=== PATIENT | male | born 1945 | race Caucasian/White ===

== ENCOUNTER 2020-06-08 15:20 | Inpatient (IN) | payer MEDICARE, MEDICAID ==
[~2020-06-08] VITALS: Ht 170 cm; Wt 62.0 kg
[2020-06-08] MEDS ORDERED: ASPIRIN 81 MG CHEW (CHILDREN'S ASA) PO ONE (15:30)
[2020-06-08] MEDS ORDERED: ENOXAPARIN 80 MG/0.8 ML (LOVENOX) SYR SC ONE (15:30)
[2020-06-08] MEDS ORDERED: dilTIAZem DRIP PRE-MIX 125 ML IV SCH (15:30)
[2020-06-08] MEDS: NS IV 1000 ML 1,000 ML IV SCH ×3 (15:42→21:06)
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
[2020-06-08 15:49] LABS: ALBUMIN 4.1 GM/DL (3.2-4.5); CHLORIDE 107 MMOL/L (98-107); POTASSIUM 4.4 MMOL/L (3.6-5.0); SODIUM 142 MMOL/L (135-145)
[2020-06-08 15:50] LABS: CALCIUM 9.2 MG/DL (8.5-10.1)
[2020-06-08 15:52] LABS: GLUCOSE 111 MG/DL (70-105)
[2020-06-08 15:53] LABS: BILIRUBIN,TOTAL 1.6 MG/DL (0.1-1.0); CARBON DIOXIDE 19 MMOL/L (21-32)
[2020-06-08 15:54] LABS: FIBRIN DEGRADATION PRODUCTS 1.3 UG/ML (0.00-0.49)
[2020-06-08 15:55] LABS: ALKALINE PHOSPHATASE 122 U/L (40-136); CREATININE SERUM 1.44 MG/DL (0.60-1.30); GFR ESTIMATED 48
[2020-06-08 15:56] LABS: BUN/CREATININE RATIO 13
[2020-06-08 15:57] LABS: BASOPHILS % (AUTO) 0 % (0-10); EOSINOPHILS # (AUTO) 0.1 10^3/uL (0.0-0.3); EOSINOPHILS % (AUTO) 2 % (0-10); HEMATOCRIT 42 % (40-54); HEMOGLOBIN 13.3 g/dL (13.3-17.7); LYMPHOCYTES # (AUTO) 1.7 10^3/uL (1.0-4.0); LYMPHOCYTES % (AUTO) 25 % (12-44); MEAN CORPUSCULAR HEMOGLOBIN 29 pg (25-34); MEAN CORPUSCULAR HGB CONC 32 g/dL (32-36); MEAN CORPUSCULAR VOLUME 93 fL (80-99); MEAN PLATELET VOLUME 9.9 fL (9.0-12.2); MONOCYTES # (AUTO) 0.5 10^3/uL (0.0-1.0); MONOCYTES % (AUTO) 7 % (0-12); NEUTROPHILS # (AUTO) 4.5 10^3/uL (1.8-7.8); NEUTROPHILS % (AUTO) 66 % (42-75); PLATELET COUNT 310 10^3/uL (130-400); WHITE BLOOD COUNT 6.8 10^3/uL (4.3-11.0)
[2020-06-08 15:58] LABS: ALANINE AMINOTRANSFERASE 33 U/L (0-55); MAGNESIUM 2.6 MG/DL (1.6-2.4)
[2020-06-08 15:59] LABS: CREATINE KINASE 136 U/L (30-200)
[2020-06-08 16:06] LABS: CREATINE KINASE MB 3.1 NG/ML (<6.6)
--- NOTE | 2020-06-08 16:18 | NUR ---
RADIOLOGY AT BEDSIDE
[2020-06-08 16:19] LABS: TSH (THYROID ANALYZER) 3.78 UIU/ML (0.35-4.94)
[2020-06-08] MEDS ORDERED: IOHEXOL 350 MG/ML 100 ML (OMNIPAQUE 350) VIAL IV ONE (16:30)
[2020-06-08] MEDS ORDERED: HOLD METFORMIN - RECEIVED CONTRAST 20 ML VIAL IV SCH (16:30)
[2020-06-08] MEDS ORDERED: NS 100 ML (IVPB) BAG IV ONE (16:30)
--- NOTE | 2020-06-08 16:32 | NUR ---
PT TO CT PER CART. NO C/O VOICED, B/P 110/67, HR 128BPM
--- NOTE | 2020-06-08 16:37 | Diagnostic Imaging Report ---
INDICATION: Shortness of breath. EXAMINATION: Single view of the chest was obtained. FINDINGS: There is air trapping. There is prominence of the perihilar lung markings which may be scarring and no definite acute pneumonia or lobar consolidation. No failure pattern, effusion or pneumothorax. IMPRESSION: Likely chronic interstitial prominence with symmetrical air trapping. Dictated by: Dictated on workstation # [id number]
--- NOTE | 2020-06-08 16:53 | NUR ---
PT BACK FROM RADIOLOGY
--- NOTE | 2020-06-08 17:10 | Diagnostic Imaging Report ---
PROCEDURE: CT angiography of the chest with contrast. TECHNIQUE: Multiple contiguous axial images were obtained through the chest after uneventful bolus administration of intravenous contrast. 3D reconstructed CTA MIP acquisitions were also performed. Auto Exposure Controls were utilized during the CT exam to meet ALARA standards for radiation dose reduction. INDICATION: Shortness of breath and dizziness. FINDINGS: There is some interstitial scarring in the lung bases. There is no pleural or pericardial fluid. There is no pneumothorax. The heart size is normal. There is no pathologically enlarged adenopathy in the chest. Thoracic aorta is normal in caliber. There is suboptimal opacification of the aorta making exclusion of dissection difficult. There are no filling defects seen within the pulmonary arteries to suggest pulmonary embolism. There is some pneumobilia suggesting previous sphincterotomy. Remainder of the intra-abdominal structures are unremarkable. There are degenerative changes in the spine. IMPRESSION: Chronic appearing interstitial scarring in the lung bases. No evidence of pulmonary embolism. No evidence of aortic aneurysm although it is difficult to exclude dissection due to suboptimal opacification of the aorta. No other acute abnormality in the chest Dictated by: Dictated on workstation # [id number]
[2020-06-08] MEDS ORDERED: APIXABAN 5 MG (ELIQUIS) TABLET PO ONE (17:30)
[2020-06-08] MEDS ORDERED: DIGOXIN 0.25 MG/ML (LANOXIN) 2 ML AMP IV ONE (17:30)
[2020-06-08] MEDS ORDERED: NS IV 1000 ML 1,000 ML ONE (20:16)
[2020-06-08] MEDS ORDERED: CATHETER FLUSH 10 ML SYR IV PRN (20:30)
[2020-06-08] MEDS ORDERED: dilTIAZem DRIP 125 MG/125 ML DRIP IV SCH (20:30)
[2020-06-08 21:53] VITALS: BP 128/100
[2020-06-08] MEDS ORDERED: RT-ALBUTEROL/IPRATROPIUM 3 ML (DUONEB) VIAL INH PRN (22:15)
[2020-06-09 03:26] LABS: BASOPHILS % (AUTO) 1 % (0-10); EOSINOPHILS % (AUTO) 1 % (0-10); HEMATOCRIT 36 % (40-54); HEMOGLOBIN 11.6 g/dL (13.3-17.7); LYMPHOCYTES # (AUTO) 1.1 10^3/uL (1.0-4.0); LYMPHOCYTES % (AUTO) 16 % (12-44); MEAN CORPUSCULAR HEMOGLOBIN 30 pg (25-34); MEAN CORPUSCULAR HGB CONC 32 g/dL (32-36); MEAN CORPUSCULAR VOLUME 93 fL (80-99); MEAN PLATELET VOLUME 10.9 fL (9.0-12.2); MONOCYTES # (AUTO) 0.6 10^3/uL (0.0-1.0); MONOCYTES % (AUTO) 9 % (0-12); NEUTROPHILS # (AUTO) 4.9 10^3/uL (1.8-7.8); NEUTROPHILS % (AUTO) 73 % (42-75); PLATELET COUNT 193 10^3/uL (130-400); WHITE BLOOD COUNT 6.7 10^3/uL (4.3-11.0)
[2020-06-09 03:35] LABS: ALBUMIN 3.5 GM/DL (3.2-4.5)
[2020-06-09 03:36] LABS: CHLORIDE 111 MMOL/L (98-107); POTASSIUM 4.1 MMOL/L (3.6-5.0); SODIUM 141 MMOL/L (135-145)
[2020-06-09 03:38] LABS: GLUCOSE 77 MG/DL (70-105); TOTAL PROTEIN 5.8 GM/DL (6.4-8.2)
[2020-06-09 03:39] LABS: CARBON DIOXIDE 19 MMOL/L (21-32)
[2020-06-09 03:40] LABS: BILIRUBIN,TOTAL 1.4 MG/DL (0.1-1.0)
[2020-06-09 03:41] LABS: ALKALINE PHOSPHATASE 95 U/L (40-136); CREATININE SERUM 1.15 MG/DL (0.60-1.30); GFR ESTIMATED > 60
[2020-06-09 03:43] LABS: BUN/CREATININE RATIO 15
[2020-06-09 03:44] LABS: ALANINE AMINOTRANSFERASE 22 U/L (0-55)
[2020-06-09] MEDS: NS IV 1000 ML 1,000 ML IV SCH ×2 (05:07→13:39)
--- NOTE | 2020-06-09 07:49 | Diagnostic Imaging Report ---
INDICATION: Valvular artery disease Portable chest 1:27 AM There are emphysematous changes in the lungs. There is interstitial fibrosis in the perihilar and basilar regions of both lungs. There are no consolidating alveolar infiltrates. There are no effusions or pneumothoraces. IMPRESSION: COPD with pulmonary fibrosis. No change compared to the previous day. Dictated by: Dictated on workstation # [id number]
[2020-06-09] MEDS ORDERED: ASPIRIN E.C. 325 MG (ECOTRIN) TABLET PO SCH (09:00)
[2020-06-09] MEDS: APIXABAN 5 MG (ELIQUIS) TABLET PO SCH ×2 (09:18→19:27)
[2020-06-09] MEDS: RT-ALBUTEROL/IPRATROPIUM 3 ML (DUONEB) VIAL INH SCH ×3 (09:49→19:44)
[2020-06-09] MEDS ORDERED: predniSONE 20 MG TAB PO NR (10:00)
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
[2020-06-09] MEDS ORDERED: LISI10TA2 PO (13:36)
[2020-06-09] MEDS ORDERED: IBUP-2473 PO (13:36)
[2020-06-09] MEDS ORDERED: ALBU18HF2 INH (13:36)
[2020-06-09] MEDS ORDERED: MAGN400T39 PO (13:36)
--- NOTE | 2020-06-09 13:36 | NUR ---
SPOKE WITH THE PT AND WENT THRU THE EXT MED HISTORY TO COMPLETE THE MED REC PT SAYS HE ONLY TAKES LISINOPRIL AND ALBUTEROL HFA. BREO 100/25 AND SYMBICORT 80/4.5 ARE LISTED ON THE EXT MED HISTORY- HOWEVER PT SAYS HE DOES NOT USE EITHER OF THEM OTC MEDS: IBUPROFEN MAGNESIUM
--- NOTE | 2020-06-09 13:44 | NUR ---
CM/SS: Updated patient's Emergency Contact information: Friend and DPOA Binta Deleon cell number [phone]. Password was also made to be "[id number]". I gave the password information to the primary care nurse Kapil so he could update the patient's chart. Contacted Dr. Lew's office to see who the patient's primary care provider is. The office reported that he see's Dr. Lew's nurse practitioner, Yin DRISCOLL. Binta will bring copies of the [facility] paper work, his insurance cards [facility] [id number]; [facility] [id number]. Patient will need to have the free Eliquis given to him at discharge so that he can pick that medication up at his choice pharmacy. This information was given to Binta and explained to his primary care nurse and placed in his discharge information packet.
--- NOTE | 2020-06-09 13:53 | Consultation-Cardiology ---
HPI-Cardiology Cardiology Consultation: Date of Consultation 06/09/20 Time Seen by a Provider: 13:30 Date of Admission Attending Physician Elissa Qiu MD Admitting Physician No,Local Physician Consulting Physician ALCON BERGERON MD, MA, FACP, FACC, FSCAI, CCDS HPI: Chief Complaint: CC: Shortness of breath HPI 75 yo man with chronic shortness of breath, much worse since yesterday. Was quite short of breath at the time of a [place] visit and was brought to ER by ambulance. Denies cp or palp or syncope or leg swelling Review of Systems-Cardiology Review of Systems Constitutional: malaise, tiredness; No weight loss, No weight gain Eyes: No vision change Ears/Nose/Throat: ear discharge, nasal drainage; No recent hearing loss Respiratory: As described under HPI Cardiovascular: As described under HPI; No lightheadedness Gastrointestinal: No nausea, No vomiting Genitourinary: No dysuria, No hematuria, No urine frequency changes Skin: No rash, No ulcerations Psychiatric/Neurological: No seizure, No focal weakness, No syncope Hematologic: No bleeding abnormalities [id number] Hx Patient Social History Alcohol Use: Past History Recreational Drug Use: No Smoking Status: Former Smoker Type Used: Cigarettes Recent Foreign Travel: No Recent Infectious Disease Expo: No Hospitalization with Isolation: Denies Immunizations Up To Date Date of Influenza Vaccine: Apr 08, 2020 Past Medical History PMH As described under Assessment. Family Medical History Family Medical History: Reports a h/o CAD in father but does not know details or what age it began at Allergies and Home Medications Allergies Coded Allergies: No Known Drug Allergies (Unverified , 06/08/20) Home Medications Albuterol Sulfate 18 Gm Hfa.aer.ad, 2 PUFF INH Q6H PRN for SHORTNESS OF BREATH, (Reported) Ibuprofen 200 Mg Tablet, 400 MG PO Q8H PRN for PAIN-MILD (1-4), (Reported) Lisinopril 10 Mg Tablet, 10 MG PO DAILY, (Reported) Magnesium Oxide 400 Mg Tablet, 400 MG PO DAILY PRN for MUSCLE CRAMPS, (Reported) Patient Home Medication List Home Medication List Reviewed: Yes Physical Exam-Cardiology Physical Exam Vital Signs/I&O 06/09/20 06/09/20 06/09/20 06/09/20 02:00 03:00 04:00 05:00 Pulse 128 126 126 126 Resp 20 119 17 19 B/P (MAP) 111/72 (85) 128/70 (89) 105/42 (63) 117/96 (103) Pulse Ox 99 97 99 100 O2 Delivery Nasal Cannula Nasal Cannula Nasal Cannula Nasal Cannula O2 Flow Rate 2.00 2.00 2.00 2.00 06/09/20 06/09/20 06/09/20 06/09/20 05:38 06:00 06:00 06:40 Temp 36.7 Pulse 126 125 Resp 20 B/P (MAP) 99/54 (69) Pulse Ox 98 O2 Delivery Nasal Cannula Nasal Cannula O2 Flow Rate 2.00 2.00 06/09/20 06/09/20 06/09/20 06/09/20 07:20 09:50 10:56 11:25 Temp 36.1 36.0 Pulse 125 128 126 Resp 20 24 B/P (MAP) 119/76 (90) 131/75 127/78 (94) Pulse Ox 98 95 96 O2 Delivery Nasal Cannula Nasal Cannula Room Air O2 Flow Rate 2.00 2.00 06/09/20 13:09 Pulse 127 06/09/20 00:00 Intake Total 1000 ml Balance 1000 ml Capillary Refill : Less Than 3 Seconds Constitutional: AAO x 3, well-developed, well-nourished HEENT: EOMI, hearing is well preserved; No xanthelasmas are seen Neck: carotid pulses are 2 + bilaterally, with good upstrokes Respiratory: other (Scattered wheezes, prolonged exp phase) Cardiovascular: regular rate-rhythm, S1 and S2, systolic murmur (soft JACQUELINE at card base) Gastrointestinal: No tender; soft; No guarding, No rebound; audible bowel sounds Extremities: No clubbing, No cyanosis, No significant edema Neurologic/Psychiatric: oriented x 3, other (moves all limbs equally) Skin: No rash on exposed areas, No ulcerations on exposed areas Data Review Labs Laboratory Tests 06/08/20 15:30: White Blood Count 6.8, Red Blood Count 4.55, Hemoglobin 13.3, Hematocrit 42, Mean Corpuscular Volume 93, Mean Corpuscular Hemoglobin 29, Mean Corpuscular Hemoglobin Concent 32, Red Cell Distribution Width 14.2, Platelet Count 310, Mean Platelet Volume 9.9, Immature Granulocyte % (Auto) 0, Neutrophils (%) (Auto) 66, Lymphocytes (%) (Auto) 25, Monocytes (%) (Auto) 7, Eosinophils (%) (Auto) 2, Basophils (%) (Auto) 0, Neutrophils # (Auto) 4.5, Lymphocytes # (Auto) 1.7, Monocytes # (Auto) 0.5, Eosinophils # (Auto) 0.1, Basophils # (Auto) 0.0, Immature Granulocyte # (Auto) 0.0, Prothrombin Time 14.0, INR Comment 1.0, Activated Partial Thromboplast Time 25, D-Dimer 1.30H, Sodium Level 142, Potassium Level 4.4, Chloride Level 107, Carbon Dioxide Level 19L, Anion Gap 16H , Blood Urea Nitrogen 19H, Creatinine 1.44H, Estimat Glomerular Filtration Rate 48, BUN/Creatinine Ratio 13, Glucose Level 111H, Calcium Level 9.2, Corrected Ca lcium 9.1, Magnesium Level 2.6H, Total Bilirubin 1.6H, Aspartate Amino Transf (AST/SGOT) 61H, Alanine Aminotransferase (ALT/SGPT) 33, Alkaline Phosphatase 122, Total Creatine Kinase 136, Creatine Kinase MB 3.1, Myoglobin 172.0H, Troponin I 0.036H, B-Type Natriuretic Peptide 1083.1H, Total Protein 7.0, Albumin 4.1, TSH Cottle Testing 3.78, Serum Alcohol < 10 06/08/20 21:48: Troponin I 0.036H 06/09/20 02:45: White Blood Count 6.7, Red Blood Count 3.93L, Hemoglobin 11.6L, Hematocrit 36L, Mean Corpuscular Volume 93, Mean Corpuscular Hemoglobin 30, Mean Corpuscular Hemoglobin Concent 32, Red Cell Distribution Width 14.2, Platelet Count 193, Mean Platelet Volume 10.9, Immature Granulocyte % (Auto) 1, Neutrophils (%) (Auto) 73, Lymphocytes (%) (Auto) 16, Monocytes (%) (Auto) 9, Eosinophils (%) (Auto) 1, Basophils (%) (Auto) 1, Neutrophils # (Auto) 4.9, Lymphocytes # (Auto) 1.1, Monocytes # (Auto) 0.6, Eosinophils # (Auto) 0.0, Basophils # (Auto) 0.0, Immature Granulocyte # (Auto) 0.0, Sodium Level 141, Potassium Level 4.1, Chloride Level 111H, Carbon Dioxide Level 19L, Anion Gap 11, Blood Urea Nitrogen 17, Creatinine 1.15, Estimat Glomerular Filtration Rate > 60, BUN/Creatinine Ratio 15, Glucose Level 77, Calcium Level 8.0L, Corrected Calcium 8.4L, Total Bilirubin 1.4H, Aspartate Amino Transf (AST/SGOT) 25, Alanine Aminotransferase (ALT/SGPT) 22, Alkaline Phosphatase 95, B-Type Natriuretic Peptide 1274.9H, Total Protein 5.8L, Albumin 3.5 Laboratory Tests 06/08/20 15:30 06/09/20 02:45 A/P-Cardiology Assessment/Admission Diagnosis Shortness of breath, multifactorial (see below) Ac exacerbation of COPD Atrial flutter with 2:1 AV conduction Ac CHF, EF undetermined. Acute component likely diastolic due to rapid heart rate Hypertension, by history Quit smoking in early , he says Discussion and Recomendations * iv dilt * Add iv dig * iv diuretics * Echo * Management of ac exac of COPD is with the Hospitalist service * Monitor labs Clinical Quality Measures DVT/VTE Risk/Contraindication: Risk Factor Score Per Nursin RFS Level Per Nursing on Admit: 2=Moderate ALCON BERGERON MD FACP [facility] CCDS Jun 09, 2020 13:53
[2020-06-09] MEDS ORDERED: FUROSEMIDE 40 MG/4 ML INJ (LASIX) IVP NR (14:00)
[2020-06-09] MEDS ORDERED: KCL 20 MEQ TAB (K-DUR) PO NR (14:00)
[2020-06-09] MEDS ORDERED: DIGOXIN 0.25 MG/ML (LANOXIN) 2 ML AMP IV NR (14:00)
[2020-06-09 14:39] LABS: AMPHETAMINE SCREEN, URINE NEGATIVE (NEGATIVE); BARBITURATE SCREEN URINE NEGATIVE (NEGATIVE); BENZODIAZEPINES SCREEN URINE NEGATIVE (NEGATIVE); CANNABINOID SCREEN, URINE NEGATIVE (NEGATIVE); COCAINE SCREEN URINE NEGATIVE (NEGATIVE); METHADONE STAT NEGATIVE (NEGATIVE); METHAMPHETAMINE SCREEN URINE S NEGATIVE (NEGATIVE); OPIATE SCREEN URINE NEGATIVE (NEGATIVE); OXYCODONE STAT NEGATIVE (NEGATIVE); PROPOXYPHENE STAT NEGATIVE (NEGATIVE); TRICYCLIC ANTIDEPRESSANTS SCRE NEGATIVE (NEGATIVE)
[2020-06-09] MEDS: ADVAIR HFA 115/21 MCG INHALER 8 GM IH SCH (20:06)
--- NOTE | 2020-06-09 21:00 | NUR ---
2053- PAGED DR. BERGERON. 2054- DR. BERGERON RETURNED PAGE. REPORTED TURNED OFF CARDIZEM DRIP DUE TO HEART RATE 70'S TO 90'S AFLUTTER. SBP 70'S AND 80'S. ORDERED TO KEEP THE DRIP OFF. TO GIVE A ONE TIME DOSE OF CARDIZEM CD 120MG IS HEART RATE SUSTAINS OVER 130 BPM.
[2020-06-10 03:54] LABS: POTASSIUM 4.7 MMOL/L (3.6-5.0)
[2020-06-10 03:55] LABS: CALCIUM 8.5 MG/DL (8.5-10.1)
[2020-06-10 03:59] LABS: CREATININE SERUM 1.18 MG/DL (0.60-1.30)
[2020-06-10 04:01] LABS: MAGNESIUM 2.1 MG/DL (1.6-2.4)
[2020-06-10] MEDS: predniSONE 20 MG TAB PO SCH (06:13)
[2020-06-10] MEDS: RT-ALBUTEROL/IPRATROPIUM 3 ML (DUONEB) VIAL INH SCH ×3 (06:59→21:52)
[2020-06-10] MEDS: ADVAIR HFA 115/21 MCG INHALER 8 GM IH SCH ×2 (06:59→21:52)
[2020-06-10] MEDS: UMECLIDINIUM BROMIDE (INCRUSE ELLIPTA) 7'S IH SCH (07:00)
--- NOTE | 2020-06-10 08:01 | Progress Note - Hospitalist ---
Subjective HPI/CC On Admission Date Seen by Provider: Jun 10, 2020 Time Seen by Provider: 07:50 Sheron Grayson is a 75-year-old male with past medical history of COPD, former smoker, who presented with shortness of breath. He was at the [facility] yesterday and became very short of breath. He denies chest pain. He denies palpitations. He did have nausea and vomiting. He also reports diaphoresis. He denies any fevers. He denies any cough. He denies any diarrhea. He denies any abdominal pain. He reports occasional acid reflux. He quit smoking about 20 years ago. He uses an albuterol inhaler whenever he gets short of breath. He follows with doctor in [place]. Subjective/Events-last exam he is feeling better today. He denies any chest pain or palpitations. He is not having any shortness of breath. He denies any fevers. Objective Exam Vital Signs Vital Signs Date Time Temp Pulse Resp B/P (MAP) Pulse Ox O2 Delivery O2 Flow Rate FiO2 06/10/20 07:02 95 Room Air 06/10/20 07:01 06/10/20 07:00 125 06/10/20 06:00 15 114/53 (73) 06/10/20 00:15 36.2 Capillary Refill : Less Than 3 Seconds General Appearance: No Apparent Distress, Chronically ill Neck: Normal Inspection, Supple Respiratory: No Respiratory Distress, Wheezing Cardiovascular: Irregularly Irregular, Tachycardia Gastrointestinal: Normal Bowel Sounds, Non Tender, Soft Extremity: Normal Inspection, Non Tender, No Pedal Edema Neurologic/Psychiatric: Alert, Oriented x3, No Motor/Sensory Deficits, Normal Mood/Affect Skin: Normal Color, Warm/Dry Results/Procedures Lab Laboratory Tests 06/10/20 03:05 Patient resulted labs reviewed. Imaging: Reviewed Imaging Report Assessment/Plan Assessment and Plan Assess & Plan/Chief Complaint Atrial fibrillation with rapid ventricular response Transitioned to oral Cardizem Continue Eliquis Cardiology consulted, appreciate assistance COPD with acute exacerbation Continue prednisone and inhalers MAT protocol HTN Continue Lisinopril DVT Prophylaxis: already receiving therapeutic anticoagulation Diagnosis/Problems Diagnosis/Problems (1) Atrial fibrillation with RVR Status: Acute (2) COPD (chronic obstructive pulmonary disease) Status: Acute (3) HTN (hypertension) Status: Chronic Qualifiers: Hypertension type: essential hypertension Qualified Codes: I10 - Essential (primary) hypertension Clinical Quality Measures DVT/VTE Risk/Contraindication: Risk Factor Score Per Nursin RFS Level Per Nursing on Admit: 2=Moderate SONIA STAFFORD MD Jun 10, 2020 08:01
[2020-06-10] MEDS: APIXABAN 5 MG (ELIQUIS) TABLET PO SCH ×2 (08:24→21:56)
[2020-06-10] MEDS ORDERED: lisINopril 10 MG (PRINIVIL) TABLET PO SCH (09:00)
[2020-06-10] MEDS ORDERED: lisINopril 40 MG (PRINIVIL) TABLET PO SCH (09:00)
--- NOTE | 2020-06-10 15:55 | Progress Note - Cardiology ---
Cardiology SOAP Progress Note Subjective: He says his shortness of breath has improved but not resolved No cp or palp or syncope No n/v/d Objective: I&O/Vital Signs 06/10/20 06/10/20 06/10/20 06/10/20 04:00 05:00 06:00 07:00 Pulse 124 123 118 125 Resp 18 18 15 B/P (MAP) 121/65 (83) 101/50 (67) 114/53 (73) Pulse Ox 100 100 100 O2 Delivery Nasal Cannula Nasal Cannula Nasal Cannula O2 Flow Rate 2.00 2.00 2.00 06/10/20 06/10/20 06/10/20 06/10/20 07:01 07:01 07:02 07:59 Temp 37.2 Pulse 126 Resp 26 B/P (MAP) 116/79 (91) Pulse Ox 95 95 95 96 O2 Delivery Room Air Room Air Room Air Nasal Cannula O2 Flow Rate 2.00 06/10/20 06/10/20 06/10/20 09:00 14:41 15:45 Temp 36.8 Pulse 126 Resp 13 B/P (MAP) 134/75 (94) Pulse Ox 96 97 95 O2 Delivery Room Air Room Air Nasal Cannula O2 Flow Rate 2.00 2.00 06/10/20 00:00 Intake Total 500 ml Output Total 500 ml Balance 0 ml Constitutional: AAO x 3, well-developed, well-nourished Respiratory: other (Scattered wheezes, prolonged exp phase) Cardiovascular: regular rate-rhythm, S1 and S2, systolic murmur (soft JACQUELINE at card base) Gastrointestional: No tender; soft; No guarding, No rebound; audible bowel s ounds Extremities: No clubbing, No cyanosis, No significant edema Neurologic/Psychiatric: oriented x 3, other (moves all limbs equally) Skin: No rash on exposed areas, No ulcerations on exposed areas Results/Procedures: Labs Laboratory Tests 06/10/20 03:05: Sodium Level 139, Potassium Level 4.7, Chloride Level 108H, Carbon Dioxide Level 16L, Anion Gap 15H, Blood Urea Nitrogen 17, Creatinine 1.18, Estimat Glomerular Filtration Rate 60, BUN/Creatinine Ratio 14, Glucose Level 90, Calcium Level 8.5, Magnesium Level 2.1 A/P: Assessment: Shortness of breath, multifactorial (see below) Ac systolic and diastolic CHF. Echo of 06/10/20: LVEF 35-40%, mild to mod MR, mild left atrial enlargement, PASP 35-40 mmHg Cardiomyopathy (see above) probably tachycardia-related Ac exacerbation of COPD Atrial flutter with 2:1 AV conduction Hypertension, by history Quit smoking in early , he says Plan: * Dig for vent rate control * BB and VANESSA-inhib to treat dilated cardiomyopathy. Adjust as tolerated by bp * Diuretics (furosemide and spironolactone) to treat decompensated CHF * Apixaban for stroke prophylaxis * Monitor labs ALCON BERGERON MD FACP FAC CCDS Jun 10, 2020 15:55
[2020-06-10] MEDS ORDERED: FUROSEMIDE 40 MG (LASIX) TAB PO ONE (16:00)
[2020-06-10] MEDS ORDERED: SPIRONOLACTONE 25 MG (ALDACTONE) TAB PO ONE (16:00)
[2020-06-10] MEDS ORDERED: DIGOXIN 0.125 MG (LANOXIN) TAB PO ONE (16:00)
[2020-06-10] MEDS ORDERED: DIGOXIN 0.125 MG (LANOXIN) TAB ONE (16:20)
[2020-06-10] MEDS ORDERED: FUROSEMIDE 40 MG (LASIX) TAB ONE (16:20)
[2020-06-10] MEDS: CARVEDILOL 3.125 MG (COREG) TABLET PO SCH (16:25)
[2020-06-10 21:56] VITALS: BP 116/73
[2020-06-10] MEDS: ENALAPRIL 2.5 MG (VASOTEC) TAB PO SCH (21:56)
--- NOTE | 2020-06-11 05:14 | Progress Note - Hospitalist ---
Subjective HPI/CC On Admission Date Seen by Provider: Jun 11, 2020 Time Seen by Provider: 05:00 Sheron Grayson is a 75-year-old male with past medical history of COPD, former smoker, who presented with shortness of breath. He was at the [facility] yesterday and became very short of breath. He denies chest pain. He denies palpitations. He did have nausea and vomiting. He also reports diaphoresis. He denies any fevers. He denies any cough. He denies any diarrhea. He denies any abdominal pain. He reports occasional acid reflux. He quit smoking about 20 years ago. He uses an albuterol inhaler whenever he gets short of breath. He follows with doctor in [place]. Subjective/Events-last exam He is feeling better today. He is not having any trouble breathing. He denies any chest pain. He has been eating and drinking. He has no complaints or concerns. Objective Exam Vital Signs Vital Signs Date Time Temp Pulse Resp B/P (MAP) Pulse Ox O2 Delivery O2 Flow Rate FiO2 06/11/20 21:13 93 Room Air 06/11/20 20:38 35.5 90 16 105/65 (78) 06/10/20 21:56 21 06/10/20 19:38 2.00 Capillary Refill : Less Than 3 SecondsLess Than 3 Seconds General Appearance: No Apparent Distress, Chronically ill Respiratory: Lungs Clear, Normal Breath Sounds, No Respiratory Distress Cardiovascular: Irregularly Irregular, Tachycardia Gastrointestinal: Normal Bowel Sounds, Non Tender, Soft Extremity: Normal Inspection, Non Tender, No Pedal Edema Neurologic/Psychiatric: Alert, Oriented x3, No Motor/Sensory Deficits, Normal Mood/Affect Skin: Normal Color, Warm/Dry Results/Procedures Lab Laboratory Tests 06/11/20 04:21 Patient resulted labs reviewed. Imaging: Reviewed Imaging Report Assessment/Plan Assessment and Plan Assess & Plan/Chief Complaint Atrial fibrillation with rapid ventricular response Heart failure with reduced ejection fraction Continue Digoxin Starting oral Cardizem Increasing Coreg Cardizem stopped Continue Eliquis Cardiology consulted, appreciate assistance Echo revealed EF 35-40% Continue Enalapril COPD with acute exacerbation Continue prednisone and inhalers MAT protocol HTN Continue Lisinopril DVT Prophylaxis: already receiving therapeutic anticoagulation Diagnosis/Problems Diagnosis/Problems (1) Atrial fibrillation with RVR Status: Acute (2) COPD (chronic obstructive pulmonary disease) Status: Acute (3) HTN (hypertension) Status: Chronic Qualifiers: Hypertension type: essential hypertension Qualified Codes: I10 - Essential (primary) hypertension (4) HFrEF (heart failure with reduced ejection fraction) Status: Acute Clinical Quality Measures DVT/VTE Risk/Contraindication: Risk Factor Score Per Nursin RFS Level Per Nursing on Admit: 2=Moderate SONIA STAFFORD MD Jun 11, 2020 05:14
[2020-06-11 05:26] LABS: BASOPHILS % (AUTO) 0 % (0-10); EOSINOPHILS % (AUTO) 0 % (0-10); HEMATOCRIT 41 % (40-54); HEMOGLOBIN 13.4 g/dL (13.3-17.7); LYMPHOCYTES # (AUTO) 1.1 10^3/uL (1.0-4.0); LYMPHOCYTES % (AUTO) 11 % (12-44); MEAN CORPUSCULAR HEMOGLOBIN 29 pg (25-34); MEAN CORPUSCULAR HGB CONC 33 g/dL (32-36); MEAN CORPUSCULAR VOLUME 89 fL (80-99); MONOCYTES # (AUTO) 0.7 10^3/uL (0.0-1.0); MONOCYTES % (AUTO) 7 % (0-12); NEUTROPHILS # (AUTO) 8.1 10^3/uL (1.8-7.8); NEUTROPHILS % (AUTO) 82 % (42-75); PLATELET COUNT 309 10^3/uL (130-400); WHITE BLOOD COUNT 9.9 10^3/uL (4.3-11.0)
[2020-06-11 05:43] LABS: POTASSIUM 3.8 MMOL/L (3.6-5.0)
[2020-06-11 05:49] LABS: CREATININE SERUM 1.17 MG/DL (0.60-1.30)
[2020-06-11] MEDS: predniSONE 20 MG TAB PO SCH (06:24)
[2020-06-11] MEDS: RT-ALBUTEROL/IPRATROPIUM 3 ML (DUONEB) VIAL INH SCH ×2 (07:54→21:12)
[2020-06-11] MEDS: ADVAIR HFA 115/21 MCG INHALER 8 GM IH SCH ×2 (07:54→21:12)
[2020-06-11] MEDS: UMECLIDINIUM BROMIDE (INCRUSE ELLIPTA) 7'S IH SCH (07:55)
[2020-06-11] MEDS: CARVEDILOL 3.125 MG (COREG) TABLET PO SCH ×2 (08:02→17:45)
[2020-06-11] MEDS: ENALAPRIL 2.5 MG (VASOTEC) TAB PO SCH ×2 (08:02→20:39)
[2020-06-11] MEDS: SPIRONOLACTONE 25 MG (ALDACTONE) TAB PO SCH (08:02)
[2020-06-11] MEDS: DIGOXIN 0.125 MG (LANOXIN) TAB PO SCH (08:02)
[2020-06-11] MEDS: FUROSEMIDE 40 MG (LASIX) TAB PO SCH (08:02)
[2020-06-11] MEDS: APIXABAN 5 MG (ELIQUIS) TABLET PO SCH ×2 (08:02→20:39)
--- NOTE | 2020-06-11 12:56 | Progress Note - Cardiology ---
Cardiology SOAP Progress Note Subjective: Shortness of breath, but breathing has not returned to baseline No cp or palp or syncope Gen malaise present No n/v/d Objective: I&O/Vital Signs 06/11/20 06/11/20 06/11/20 06/11/20 01:00 04:00 07:00 07:11 Temp 36.4 36.1 Pulse 118 112 130 114 Resp 12 24 B/P (MAP) 109/64 (79) 124/75 (91) Pulse Ox 94 95 O2 Delivery Room Air Room Air 06/11/20 06/11/20 06/11/20 07:55 08:09 11:06 Temp 35.9 Pulse 133 Resp 28 B/P (MAP) 132/78 (96) Pulse Ox 93 95 98 O2 Delivery Room Air Room Air Room Air 06/11/20 00:00 Intake Total 1575 ml Output Total 700 ml Balance 875 ml Constitutional: AAO x 3, well-developed, well-nourished Respiratory: other (Scattered wheezes, prolonged exp phase) Cardiovascular: regular rate-rhythm, S1 and S2, systolic murmur (soft JACQUELINE at card base) Gastrointestional: No tender; soft; No guarding, No rebound; audible bowel sounds Extremities: No clubbing, No cyanosis, No significant edema Neurologic/Psychiatric: oriented x 3, other (moves all limbs equally) Skin: No rash on exposed areas, No ulcerations on exposed areas Results/Procedures: Labs Laboratory Tests 06/11/20 04:21: White Blood Count 9.9, Red Blood Count 4.64, Hemoglobin 13.4, Hematocrit 41, Mean Corpuscular Volume 89, Mean Corpuscular Hemoglobin 29, Mean Corpuscular Hemoglobin Concent 33, Red Cell Distribution Width 13.7, Platelet Count 309, Mean Platelet Volume 10.0, Immature Granulocyte % (Auto) 1, Neutrophils (%) (Au to) 82H, Lymphocytes (%) (Auto) 11L, Monocytes (%) (Auto) 7, Eosinophils (%) (Auto) 0, Basophils (%) (Auto) 0, Neutrophils # (Auto) 8.1H, Lymphocytes # (Auto) 1.1, Monocytes # (Auto) 0.7, Eosinophils # (Auto) 0.0, Basophils # (Auto) 0.0, Immature Granulocyte # (Auto) 0.1, Sodium Level 139, Potassium Level 3.8, Chloride Level 103, Carbon Dioxide Level 23, Anion Gap 13, Blood Urea Nitrogen 24H, Creatinine 1.17, Estimat Glomerular Filtration Rate 60, BUN/Creatinine Ratio 21, Glucose Level 99, Calcium Level 9.0, Magnesium Level 2.0 A/P: Assessment: Shortness of breath, multifactorial (see below) Ac systolic and diastolic CHF. Echo of 06/10/20: LVEF 35-40%, mild to mod MR, mild left atrial enlargement, PASP 35-40 mmHg Cardiomyopathy (see above) probably tachycardia-related Ac exacerbation of COPD Atrial flutter with 2:1 AV conduction Hypertension, by history Quit smoking in early , he says Plan: * Heart rate still not well controlled. Increase carvediolol, continue dig, long-acting diltiazem x 1 today * Cardioversion ideally after 3 weeks of uninterrupted anticoag, but if rate remains uncontrolled then DEVAUGHN followed by cardioversion. Trying to avoid DEVAUGHN because it may require gen anesthesia that pt may not tolerate well due to his advance pulm disease ALCON BERGERON MD FACP [facility] Jun 11, 2020 12:56
[2020-06-11] MEDS ORDERED: dilTIAZem120 MG (CARDIZEM CD) CAP PO NR (13:30)
[2020-06-12] MEDS: RT-ALBUTEROL/IPRATROPIUM 3 ML (DUONEB) VIAL INH SCH ×2 (07:29→22:36)
[2020-06-12] MEDS: UMECLIDINIUM BROMIDE (INCRUSE ELLIPTA) 7'S IH SCH (07:29)
[2020-06-12] MEDS: ADVAIR HFA 115/21 MCG INHALER 8 GM IH SCH ×2 (07:30→22:36)
[2020-06-12] MEDS: DIGOXIN 0.125 MG (LANOXIN) TAB PO SCH (09:16)
[2020-06-12] MEDS: APIXABAN 5 MG (ELIQUIS) TABLET PO SCH ×2 (09:17→20:19)
[2020-06-12] MEDS: CARVEDILOL 3.125 MG (COREG) TABLET PO SCH (09:17)
[2020-06-12] MEDS: ENALAPRIL 2.5 MG (VASOTEC) TAB PO SCH ×2 (09:17→21:39)
[2020-06-12] MEDS: SPIRONOLACTONE 25 MG (ALDACTONE) TAB PO SCH (09:17)
[2020-06-12] MEDS: predniSONE 20 MG TAB PO SCH (09:17)
[2020-06-12] MEDS: FUROSEMIDE 40 MG (LASIX) TAB PO SCH (09:17)
--- NOTE | 2020-06-12 12:18 | Progress Note - Hospitalist ---
Subjective HPI/CC On Admission Date Seen by Provider: Jun 12, 2020 Time Seen by Provider: 08:30 Sheron Grayson is a 75-year-old male with past medical history of COPD, former smoker, who presented with shortness of breath. He was at the [facility] yesterday and became very short of breath. He denies chest pain. He denies palpitations. He did have nausea and vomiting. He also reports diaphoresis. He denies any fevers. He denies any cough. He denies any diarrhea. He denies any abdominal pain. He reports occasional acid reflux. He quit smoking about 20 years ago. He uses an albuterol inhaler whenever he gets short of breath. He follows with doctor in [place]. Subjective/Events-last exam He his feeling better today. He is not short of breath. He denies chest pain and palpitations. He has no other complaints or concerns. Objective Exam Vital Signs Vital Signs Date Time Temp Pulse Resp B/P (MAP) Pulse Ox O2 Delivery O2 Flow Rate FiO2 06/12/20 12:00 35.4 68 20 101/57 (72) 96 Room Air 06/10/20 21:56 21 06/10/20 19:38 2.00 Capillary Refill : Less Than 3 SecondsLess Than 3 Seconds General Appearance: No Apparent Distress, Chronically ill Respiratory: Lungs Clear, Normal Breath Sounds, No Respiratory Distress Cardiovascular: Irregularly Irregular, Tachycardia Gastrointestinal: Normal Bowel Sounds, Non Tender, Soft Extremity: Normal Inspection, Non Tender, No Pedal Edema Neurologic/Psychiatric: Alert, Oriented x3, No Motor/Sensory Deficits, Normal Mood/Affect Skin: Normal Color, Warm/Dry Results/Procedures Lab Patient resulted labs reviewed. Imaging: Reviewed Imaging Report Assessment/Plan Assessment and Plan Assess & Plan/Chief Complaint Atrial fibrillation with rapid ventricular response Heart failure with reduced ejection fraction HTN Continue Digoxin, Cardizem and Coreg for rate/rhythm control Continue Eliquis for stroke prophylaxis Cardiology consulted, appreciate assistance Echo revealed EF 35-40% Continue Enalapril and Coreg for heart failure COPD with acute exacerbation Continue prednisone and inhalers MAT protocol DVT Prophylaxis: already receiving therapeutic anticoagulation Diagnosis/Problems Diagnosis/Problems (1) Atrial fibrillation with RVR Status: Acute (2) COPD (chronic obstructive pulmonary disease) Status: Acute (3) HTN (hypertension) Status: Chronic Qualifiers: Hypertension type: essential hypertension Qualified Codes: I10 - Essential (primary) hypertension (4) HFrEF (heart failure with reduced ejection fraction) Status: Acute Clinical Quality Measures DVT/VTE Risk/Contraindication: Risk Factor Score Per Nursin RFS Level Per Nursing on Admit: 2=Moderate SONIA STAFFORD MD Jun 12, 2020 12:18
--- NOTE | 2020-06-12 14:07 | Progress Note - Cardiology ---
Cardiology SOAP Progress Note Subjective: Feels better than before Shortness of breath improving No palp or syncope No n/v Objective: I&O/Vital Signs 06/12/20 06/12/20 06/12/20 06/12/20 04:55 07:00 07:30 08:00 Temp 35.4 35.9 Pulse 77 60 74 Resp 26 24 B/P (MAP) 138/107 (117) 132/76 (94) Pulse Ox 93 90 95 O2 Delivery Room Air Room Air Room Air 06/12/20 06/12/20 06/12/20 09:00 12:00 12:41 Temp 35.4 Pulse 68 67 Resp 20 B/P (MAP) 101/57 (72) Pulse Ox 96 96 O2 Delivery Room Air Room Air 06/12/20 00:00 Intake Total 1300 ml Output Total 1875 ml Balance -575 ml Constitutional: AAO x 3, well-developed, well-nourished Respiratory: other (Scattered wheezes, prolonged exp phase) Cardiovascular: regular rate-rhythm, S1 and S2, systolic murmur (soft JACQUELINE at card base) Gastrointestional: No tender; soft; No guarding, No rebound; audible bowel sounds Extremities: No clubbing, No cyanosis, No significant edema Neurologic/Psychiatric: oriented x 3, other (moves all limbs equally) Skin: No rash on exposed areas, No ulcerations on exposed areas A/P: Assessment: Shortness of breath, multifactorial (see below) Ac systolic and diastolic CHF. Echo of 06/10/20: LVEF 35-40%, mild to mod MR, mild left atrial enlargement, PASP 35-40 mmHg Cardiomyopathy (see above) probably tachycardia-related Ac exacerbation of COPD Atrial flutter with 2:1 AV conduction Hypertension, by history Quit smoking in early , he says Plan: * Increase carvedilol * Cardioversion ideally after 3 weeks of uninterrupted anticoag. Trying to avoid DEVAUGHN because it may require gen anesthesia that pt may not tolerate well due to his advanced pulm disease ALCON BERGERON MD FACP [facility] Jun 12, 2020 14:07
[2020-06-12] MEDS: CARVEDILOL 12.5 MG (COREG) TABLET PO SCH (17:58)
[2020-06-13 04:38] LABS: BUN/CREATININE RATIO 31; CALCIUM 8.9 MG/DL (8.5-10.1); CARBON DIOXIDE 25 MMOL/L (21-32); CHLORIDE 102 MMOL/L (98-107); CREATININE SERUM 1.15 MG/DL (0.60-1.30); GFR ESTIMATED > 60; GLUCOSE 100 MG/DL (70-105); MAGNESIUM 2.2 MG/DL (1.6-2.4); POTASSIUM 3.8 MMOL/L (3.6-5.0); SODIUM 137 MMOL/L (135-145)
[2020-06-13] MEDS: predniSONE 20 MG TAB PO SCH (06:14)
[2020-06-13] MEDS: ADVAIR HFA 115/21 MCG INHALER 8 GM IH SCH (07:37)
[2020-06-13] MEDS: UMECLIDINIUM BROMIDE (INCRUSE ELLIPTA) 7'S IH SCH (07:37)
[2020-06-13] MEDS: RT-ALBUTEROL/IPRATROPIUM 3 ML (DUONEB) VIAL INH SCH (07:37)
[2020-06-13] MEDS: SPIRONOLACTONE 25 MG (ALDACTONE) TAB PO SCH (08:09)
[2020-06-13] MEDS: ENALAPRIL 2.5 MG (VASOTEC) TAB PO SCH (08:09)
[2020-06-13] MEDS: CARVEDILOL 12.5 MG (COREG) TABLET PO SCH (08:09)
[2020-06-13] MEDS: APIXABAN 5 MG (ELIQUIS) TABLET PO SCH (08:09)
[2020-06-13] MEDS: DIGOXIN 0.125 MG (LANOXIN) TAB PO SCH (08:09)
[2020-06-13] MEDS: FUROSEMIDE 40 MG (LASIX) TAB PO SCH (08:10)
--- NOTE | 2020-06-13 08:57 | Progress Note - Cardiology ---
Cardiology SOAP Progress Note Subjective: Sitting up on the side of the bed. States he wants to go home No c/o CP or palpitations Feels SOB is better, but not yet back to his baseline Objective: I&O/Vital Signs Constitutional: AAO x 3, well-developed, well-nourished Respiratory: other (Scattered wheezes, prolonged exp phase) Cardiovascular: irregularly irregular, S1 and S2, systolic murmur (soft JACQUELINE at card base) Gastrointestional: No tender; soft; No guarding, No rebound; audible bowel sounds Extremities: No clubbing, No cyanosis, No significant edema Neurologic/Psychiatric: oriented x 3, other (moves all limbs equally) Skin: No rash on exposed areas, No ulcerations on exposed areas Results/Procedures: Labs A/P: Assessment: Shortness of breath, multifactorial (see below) Ac systolic and diastolic CHF. Echo of 06/10/20: LVEF 35-40%, mild to mod MR, m ild left atrial enlargement, PASP 35-40 mmHg Cardiomyopathy (see above) probably tachycardia-related Ac exacerbation of COPD Atrial flutter with 2:1 AV conduction Hypertension, by history Quit smoking in early , he says Plan: * Coreg increased yesterday * HR improved, but not ideal - remains in a-fib * Somewhat low BP prevents us from increasing BB any further * Continue Dig * Cardioversion ideally after 3 weeks of uninterrupted anticoag. Trying to avoid DEVAUGHN because it may require gen anesthesia that pt may not tolerate well due to his advanced pulm disease NOEMI PATEL Jun 13, 2020 08:57
--- NOTE | 2020-06-13 09:45 | Discharge Summary ---
Diagnosis/Chief Complaint Date of Admission Jun 08, 2020 at 17:20 Date of Discharge Admission Diagnosis Atrial fibrillation with rapid ventricular response Primary Care No,Local Physician Discharge Diagnosis (1) Atrial fibrillation with RVR Status: Acute (2) COPD (chronic obstructive pulmonary disease) Status: Acute (3) HTN (hypertension) Status: Chronic (4) HFrEF (heart failure with reduced ejection fraction) Status: Acute Discharge Summary Discharge Physical Exam Allergies: Coded Allergies: No Known Drug Allergies (Unverified , 06/08/20) Vitals & I&Os Vital Signs Date Time Temp Pulse Resp B/P (MAP) Pulse Ox O2 Delivery O2 Flow Rate FiO2 06/13/20 08:37 96 Room Air 06/13/20 08:00 36.8 87 18 122/90 (101) 06/10/20 21:56 21 06/10/20 19:38 2.00 Hospital Course Labs (last 24 hrs) Laboratory Tests 06/13/20 03:50: Sodium Level 137, Potassium Level 3.8, Chloride Level 102, Carbon Dioxide Level 25, Anion Gap 10, Blood Urea Nitrogen 36H, Creatinine 1.15, Estimat Glomerular Filtration Rate > 60, BUN/Creatinine Ratio 31, Glucose Level 100, Calcium Level 8.9, Magnesium Level 2.2, Digoxin Level 0.94 Patient resulted labs reviewed. Pending Labs Laboratory Tests 06/13/20 03:50: Sodium Level 137, Potassium Level 3.8, Chloride Level 102, Carbon Dioxide Level 25, Anion Gap 10, Blood Urea Nitrogen 36, Creatinine 1.15, Estimat Glomerular Filtration Rate > 60, BUN/Creatinine Ratio 31, Glucose Level 100, Calcium Level 8.9, Magnesium Level 2.2, Digoxin Level 0.94 Imaging: Reviewed Imaging Report Discharge Home Medications: Active Scripts Active Reported Magnesium (Magnesium Oxide) 400 Mg Tablet 400 Mg PO DAILY PRN Ibuprofen 200 Mg Tablet 400 Mg PO Q8H PRN Ventolin Hfa (Albuterol Sulfate) 18 Gm Hfa.aer.ad 2 Puff INH Q6H PRN Lisinopril 10 Mg Tablet 10 Mg PO DAILY Instructions to patient/family Please see electronic discharge instructions given to patient. Clinical Quality Measures DVT/VTE Risk/Contraindication: Risk Factor Score Per Nursin RFS Level Per Nursing on Admit: 2=Moderate Problem Qualifiers (1) HTN (hypertension): Hypertension type: essential hypertension Qualified Codes: I10 - Essential (primary) hypertension CARMELITA,EDUARDA M MD Jun 13, 2020 09:45
[2020-06-13] MEDS ORDERED: FURO40TA4 PO (09:49)
[2020-06-13] MEDS ORDERED: PRD20T PO (09:49)
[2020-06-13] MEDS ORDERED: UMEC62.5 IH (09:49)
[2020-06-13] MEDS ORDERED: ENLP2.5T PO (09:49)
[2020-06-13] MEDS ORDERED: FLUT12AE4 IH (09:49)
[2020-06-13] MEDS ORDERED: CARV12.53 PO (09:49)
[2020-06-13] MEDS ORDERED: DIGO125T18 PO (09:49)
[2020-06-13] MEDS ORDERED: APIX5TAB PO (09:49)
[2020-06-13] MEDS ORDERED: SPIR25TA5 PO (09:49)
--- NOTE | 2020-06-13 09:49 | Progress Note - Cardiology ---
Cardiology SOAP Progress Note Subjective: Shortness of breath better No cp or palp or syncope Gen malaise present but better No n/v Wishes to go home Objective: I&O/Vital Signs 06/13/20 06/13/20 06/13/20 06/13/20 00:00 01:00 04:00 07:36 Temp 36.6 36.6 Pulse 94 129 87 Resp 22 18 B/P (MAP) 111/74 (86) 118/83 (95) Pulse Ox 94 95 99 O2 Delivery Room Air Room Air Room Air 06/13/20 06/13/20 08:00 08:37 Temp 36.8 Pulse 87 Resp 18 B/P (MAP) 122/90 (101) Pulse Ox 95 96 O2 Delivery Room Air Room Air 06/13/20 00:00 Intake Total 450 ml Output Total 200 ml Balance 250 ml Constitutional: AAO x 3, well-developed, well-nourished Respiratory: other (Scattered wheezes, prolonged exp phase) Cardiovascular: irregularly irregular, S1 and S2, systolic murmur (soft JACQUELINE at card base) Gastrointestional: No tender; soft; No guarding, No rebound; audible bowel sounds Extremities: No clubbing, No cyanosis, No significant edema Neurologic/Psychiatric: oriented x 3, other (moves all limbs equally) Skin: No rash on exposed areas, No ulcerations on exposed areas Results/Procedures: Labs Laboratory Tests 06/13/20 03:50: Sodium Level 137, Potassium Level 3.8, Chloride Level 102, Carbon Dioxide Level 25, Anion Gap 10, Blood Urea Nitrogen 36H, Creatinine 1.15, Estimat Glomerular Filtration Rate > 60, BUN/Creatinine Ratio 31, Glucose Level 100, Calcium Level 8.9, Magnesium Level 2.2, Digoxin Level 0.94 A/P: Assessment: Shortness of breath, multifactorial (see below) Ac systolic and diastolic CHF. 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 Trying to avoid DEVAUGHN because it may require gen anesthesia that pt may not tolerate well due to his advanced pulm disease * Ok to d/c later today * Cardiac outpt f/u next week * Discussed case with his attending ALCON Ward MD FACP [facility] Jun 13, 2020 09:48
--- NOTE | 2020-06-13 09:52 | Discharge Inst-Simple/Standard ---
Discharge Inst-Standard Patient Instructions/Follow Up Plan of Care/Instructions/FU: Please continue to take your medications as written. Please follow up with your primary care doctor to follow up this hospital stay. Activity as Tolerated: Yes Discharge Diet: Low Sodium Diet, Cardiac Diet Return to The Hospital For: Chest pain, shortness of breath, abdominal pain, bleeding, heart racing, fever, confusion, weakness, slurred, speech, if you feel you are getting worse. Planned Outpatient Orders/Ref. Pneu Vac Indicated: Yes EDUARDA MAE MD Jun 13, 2020 09:52
--- NOTE | 2020-06-13 11:15 | NUR ---
JAMSHID SS FINALIZED DISCHARGE PLAN: Patient is discharging to home self care today. He has multiple new medications that he will discharge on. Santana and I called Binta/friend and talked about the new medications that Santana will be dismissed on. He has a free 30 day eliquis card that we talked about and how they would need to give that to [facility] to be able to receive that medication free. Binta and Santana both indicate that Santana will be able to afford the new medications listed. An O2 study was performed and he does not need oxygen at this time. No further needs or requests identified at this time.
== END 2020-06-13 11:40 | disposition home or self-care (01) | DRG 308 ==
LOC: ER 15:27 → CSD 17:20
PROVIDERS: ADMIT Internal Medicine; ATTEND Internal Medicine
DX: I48.91 Unspecified atrial fibrillation (principal); I50.41 Acute combined systolic (congestive) and diastolic (congestive) heart failure; J44.1 Chronic obstructive pulmonary disease with (acute) exacerbation; I48.92 Unspecified atrial flutter; I11.0 Hypertensive heart disease with heart failure; I42.9 Cardiomyopathy, unspecified; I34.0 Nonrheumatic mitral (valve) insufficiency; Z87.891 Personal history of nicotine dependence; Z89.012 Acquired absence of left thumb; Z89.022 Acquired absence of left finger(s); Z85.828 Personal history of other malignant neoplasm of skin; Z82.49 Family history of ischemic heart disease and other diseases of the circulatory system
CPT/HCPCS: 36415; 71045; 71275; 80048; 80053; 80162; 80306; 80320; 82550; 82553; 83735; 83874; 83880; 84443; 84484; 85025; 85379; 85610; 85730; 93005; 93041; 94640; 94760